=== PATIENT | female | born 1985 | race Two or more races ===

== ENCOUNTER 2019-04-12 18:19 | Observation (INO) | payer SELFPAY ==
[~2019-04-12] VITALS: Ht 157.5 cm; Wt 87.1 kg
[2019-04-12 19:43] LABS: Urine Bacteria FEW /hpf (None Seen); Urine Blood Negative /uL (Negative); Urine Specific Gravity 1.004 (1.001-1.035); Urine WBC 6 /hpf (0 - 5)
[2019-04-12] MEDS ORDERED: TERBUTALINE SULFATE 1 MG/ML 1ML VIAL SC SCH (19:45)
[2019-04-12] MEDS ORDERED: LACTATED RINGER'S 1,000 ML IV ONE (19:45)
[2019-04-12] MEDS ORDERED: TERBUTALINE SULFATE 1 MG/ML 1ML VIAL SC ONE ×2 (19:51→20:15)
[2019-04-12 19:52] LABS: Alcohol, Urine < 3.0 mg/dL (0-5); Amphetamine Screen, Urine NEGATIVE (NEGATIVE); Barbiturate Scree,Urine NEGATIVE (NEGATIVE); Benzodiazephine Screen, Urine NEGATIVE (NEGATIVE); Cannabinoid Screen, Urine NEGATIVE (NEGATIVE); Cocaine Screen, Urine NEGATIVE (NEGATIVE); Opiate Scree,Urine NEGATIVE (NEGATIVE); Phencyclidine Screen, Urine NEGATIVE (NEGATIVE)
[2019-04-12] MEDS ORDERED: NIFEdipine 10 MG CAP PO ONE ×2 (20:15)
[2019-04-12] MEDS ORDERED: PROMETHAZINE HCL 6.25 MG/5 ML ORAL SYRUP PO ONE (21:30)
[2019-04-13] MEDS ORDERED: OXYTOCIN 10UNIT/ML 1ML VIAL ONE (05:07)
[2019-04-13] MEDS ORDERED: METHYLERGONOVINE MALEATE 0.2 MG/ML AMP IM ONE (05:07)
[2019-04-13] MEDS ORDERED: LACT. RINGERS/OXYTOCIN 20UNITS 0 ML IV ONE (05:07)
[2019-04-13] MEDS ORDERED: LIDOCAINE 2%HCL (LOCAL ANESTH.) INJ 20ML MDV ONE (05:12)
== END 2019-04-12 21:20 | disposition home or self-care (01) | DRG 833 ==
LOC: LDRP 18:19
PROVIDERS: ADMIT Obstetrics & Gynecology; ATTEND Obstetrics & Gynecology
DX: O62.9 Abnormality of forces of labor, unspecified (principal); O09.33 Supervision of pregnancy with insufficient antenatal care, third trimester; Z3A.37 37 weeks gestation of pregnancy
CPT/HCPCS: 59025; 76805; 80307; 81001; 81002; 94760; 96372; G0378; J3105; 96361; 96366

== ENCOUNTER 2019-04-13 05:00 | Inpatient (IN) | payer SELFPAY ==
[~2019-04-13] VITALS: Ht 157.5 cm; Wt 86.2 kg
[~2019-04-13 05:00] MED LIST: PROMETHAZINE HCL 6.25 MG/5 ML ORAL SYRUP ONE
[2019-04-13] MEDS ORDERED: ONDANSETRON HCL 4 MG/2 ML VIAL ONE (05:27)
[2019-04-13] MEDS ORDERED: CARBOPROST TROMETHAMINE 250 MCG/1ML VIAL IM ONE (05:28)
[2019-04-13] MEDS ORDERED: ONDANSETRON HCL 4 MG/2 ML VIAL IV PRN (05:30)
[2019-04-13] MEDS ORDERED: CARBOPROST TROMETHAMINE 250 MCG/1ML VIAL IM PRN (05:45)
[2019-04-13] MEDS ORDERED: PHISODERM TOP SOLN 240ML BTL TOP PRN (05:45)
[2019-04-13] MEDS ORDERED: METHYLERGONOVINE MALEATE 0.2 MG/ML AMP IM PRN (05:45)
[2019-04-13] MEDS ORDERED: DERMOPLAST 60ML BOTTLE TOP PRN (05:45)
[2019-04-13] MEDS ORDERED: WITCH HAZEL-GLYCERIN PAD TOP PRN (05:45)
[2019-04-13] MEDS ORDERED: LIDOCAINE 2%HCL (LOCAL ANESTH.) INJ 20ML MDV ID ONE (05:45)
[2019-04-13] MEDS ORDERED: LACT. RINGERS/OXYTOCIN 20UNITS 1,000 ML IV SCH (05:45)
[2019-04-13] MEDS ORDERED: OXYTOCIN 10UNIT/ML 1ML VIAL IM ONE (06:30)
[2019-04-13] MEDS ORDERED: IBUPROFEN 600 MG TAB PO PRN (06:45)
[2019-04-13] MEDS ORDERED: DIPHENOXYLATE W/ATROPINE 2.5 MG TAB PO PRN (06:45)
[2019-04-13 06:51] LABS: Basophils # (auto) 0 uL; Basophils % (auto) 0.2 % (0.0-2.0); Eosinophils # (auto) 0 uL; Hematocrit 38.6 % (36.0-46.0); Hemoglobin 12.9 g/dL (12.2-16.2); Lymphocytes # (auto) 0.9 uL; Lymphocytes % (auto) 7.9 % (10.0-50.0); Mean Corpuscular Hemoglobin 31.4 pg (28.0-32.0); Mean Corpuscular Hgb Conc. 33.4 g/dL (32.0-36.0); Mean Corpuscular Volume 94.1 fL (80.0-100.0); Monocytes # (auto) 0.6 uL; Neutrophils % (auto) 86.9 % (37.0-80.0); Platelet Count (auto) 90 10^3/uL (140-450); Red Blood Cells 4.11 10^6/uL (4.0-5.20); Red Cell Distribution Width 14.4 % (11.8-14.3); White Blood Cell 11.5 10^3/uL (4.4-10.8)
--- NOTE | 2019-04-13 07:00 | NUR ---
Teaching: Reviewed information in [facility] [employer] booklet with patient. Discussed benefits of and risks associated with not . Pt wishes to bottle feed at this time. Benefits of and the risk of providing formula to infant was discussed. Patient verbalized understanding of the benefits and is aware of risk and insists on bottle-feeding. Formula provided and instruction on formula preperation from the [employer] booklet reviewed with patient. All questions and concerns addressed at this time. Patient verbalized understanding of information.
[2019-04-13 07:02] LABS: INR < 0.93 (0.9-1.15); Partial Thromboplastin Time 26.4 sec (23.64-32.05)
[2019-04-13] MEDS: ACETAMINOPHEN 325 MG TAB PO PRN ×2 (07:10→22:53)
[2019-04-13 07:12] LABS: Albumin 2.7 g/dL (3.4-5.0); BUN/Creatinine Ratio 6.7; Potassium 4.3 mmol/L (3.5-5.1)
[2019-04-13 07:15] VITALS: BP 132/64
[2019-04-13 07:15] LABS: Bilirubin, Total 0.7 mg/dL (0.2-1.0)
--- NOTE | 2019-04-13 07:15 | NUR ---
Ambulation: Patient OOB with standby assistance by RN. Patient ambulated to bathroom with steady gait. Patient able to void 400mL without difficulty. [facility] teaching provided with returned demonstration by patient. Clean gown provided and bed linen changed. Patient ambulated back to bed with steady gait and no distress noted.
--- NOTE | 2019-04-13 07:21 | NUR ---
SBAR to Dr Waite, notified of elevated temp 100.7. orders received
[2019-04-13] MEDS: ceFAZolin 1GM/50ML 50 ML IV SCH ×2 (07:38→14:06)
[2019-04-13 10:50] VITALS: BP 102/55
--- NOTE | 2019-04-13 16:00 | NUR ---
Patient complaint of pain at IV site; Pt requesting IV removal at this time; pt informed that IV may be replaced to administer medications later today and pt verbalizes understanding and still would like IV removed. IV DC'd with clean technique, catheter fully intact. Pressure dressing applied to site. Patient tolerated procedure well.
[2019-04-13 16:30] VITALS: BP 103/59
--- NOTE | 2019-04-13 17:15 | NUR ---
Patient teaching provided via blue industrial real estate agent phone- industrial real estate agent ID #[id number] At [phone] mother of baby called RN to room and expressed concern regarding feeding. RN burped and provided slow flow nipple to patient; patient instructed to feed infant slowly and burp him often; RN performed blood glucose assessment with a result of 61; mother of informed that baby would need Hep B as well as H Big due to positive Hep B antigen lab. Mother of also informed that infant will need regular pediatric care to ensure all subsequent doses in series of hepatitis immunizations are completed on schedule. Mother of baby verbalizes understanding and consents to both immunizations.
[2019-04-13 19:00] VITALS: BP 94/63
[2019-04-13 22:48] VITALS: BP 103/56
[2019-04-14 02:55] VITALS: BP 107/54
[2019-04-14 06:30] VITALS: BP 108/53
--- NOTE | 2019-04-14 09:40 | NUR ---
Spoke to Selina social work msw. Per Selina there is no need to report CPS that dr Berry has requested. patient seen by social workers, questions and concerns answered.
--- NOTE | 2019-04-14 10:00 | NUR ---
PT SEEN BY APN MOHIT. QUESTIONS AND CONCERNS ANSWERED.
--- NOTE | 2019-04-14 10:15 | NUR ---
PT OFFERED IF INFANT CAN BE BATHED, PER PT SHE WANTS TO WAIT UNTIL THEY GO HOME TO BATH THE BABY.
[2019-04-14 11:20] VITALS: BP 93/50
[2019-04-14 11:27] LABS: RPR Non Reactive (Non Reactive); Rubella Antibodies, IgG 9.13 index (Immune >0.99)
--- NOTE | 2019-04-14 12:00 | NUR ---
Discharge: Discharge instructions given to mother of baby as ordered. Copies of and hearing screening, along with vaccination record given to mother. Mother encouraged to follow up with [employer] of choice and to give envelope with infants information to materials assistant at 1st office visit. All questions and concerns addressed. Mother of baby verbalized understanding and agreed to comply. Mother of baby encouraged to prepare for departure and notify RN ready to leave room for ID band removal/verification and car seat check.
--- NOTE | 2019-04-14 13:00 | NUR ---
Discharge: Discharge instructions given as ordered. Pt encouraged to follow up with TECHNOLOGY PROFESSIONAL as instructed. All questions and concerns addressed. Patient verbalized understanding. Medication reconciliation completed and copy given to patient. All required/requested vaccines given and copies of vaccinations given to patient. Patient encouraged to prepare to depart unit.
--- NOTE | 2019-04-14 13:10 | NUR ---
Discharge: Patient taken to vehicle via wheelchair with all personal belongings, accompanied by staff and family member. No distress noted at time of departure, no adverse changes in status since initial assessment.
--- NOTE | 2019-04-14 17:29 | NUR ---
Per SS consult for no care. Pt states she lives in [place] and she was traveling to [place] to visit family. Pt states during her 9 months of she did not see a doctor because she did not feel the need to since she has 6 kids and they where healthy. Pt states that she did not know how many months she had until she had pain and came to the [facility]. Pt states left to [place] 04/13/19 for a job interview and if he gets the job they will stay in [place] if not they will travel back to [place]. Pt states that if when she travels back to [place] she will take her Baby boy to see a production or plant engineer. Reported to to CPS. Per Screen Handler Apoorva Wilson from CPS they will not take the case since Pt does not live in [place] and there is no type of abused. pharmaceutical worker Yasmeen was present when speaking with Pt and when calling CPS. Addendum: 04/14/19 at 1740 by JORJE RIVERA Amended: Links added.
== END 2019-04-14 13:10 | disposition home or self-care (01) | DRG 806 ==
LOC: LDRP 05:00
PROVIDERS: ADMIT Obstetrics & Gynecology; ATTEND Obstetrics & Gynecology
PROC: 10E0XZZ Delivery of Products of Conception, External Approach (ICD-10-PCS; principal; 2019-04-13)
DX: O34.219 Maternal care for unspecified type scar from previous cesarean delivery (principal); B19.10 Unspecified viral hepatitis B without hepatic coma; O98.42 Viral hepatitis complicating childbirth; Z37.0 Single live birth; Z3A.38 38 weeks gestation of pregnancy
CPT/HCPCS: 36415; 59025; 59409; 80053; 84112; 85025; 85610; 85730; 86592; 86703; 86762; 86850; 86900; 86901; 87340; 96365; 96366; 96372; 96374; G0378; J0690; J2405